=== PATIENT | male | born 2000 | race Caucasian/White ===

== ENCOUNTER 2019-04-05 21:37 | Emergency (ER) | payer MEDICAID ==
[2019-04-05] MEDS ORDERED: NS 0.9% 1000 ML** 1,000 ML IV.FLUID IV ONE (22:21)
[2019-04-05] MEDS ORDERED: Albuterol/Ipratropium NEB.SOL* Albuterol 2.5 MG/Ipratropium 0.5 MG 3 ML INH ONE (22:24)
[2019-04-05] MEDS ORDERED: NS 0.9% 1000 ML** 1,000 ML IV ONE (22:59)
[2019-04-05 23:02] LABS: Activated Partial Thrombo Time 38.2 seconds (26.0-38.0); INR 1.16 (0.82-1.09)
[2019-04-05 23:04] LABS: Albumin 4.6 g/dL (3.2-5.2); Calcium 10.2 mg/dL (8.6-10.3); Potassium 4.3 mmol/L (3.5-5.0); Total Bilirubin 0.5 mg/dL (0.2-1.0)
[2019-04-05 23:10] LABS: Albumin/Globulin Ratio 1.6 (1-3); BUN/Creatinine Ratio 12.7 (8-20); C Reactive Protein 3.94 mg/L (<8.01); EGFR African American 63.6 (>60); EGFR Non-African American 52.6 (>60); Globulin 2.8 g/dL (2-4); Total Protein 7.4 g/dL (6.4-8.9)
[2019-04-05 23:25] LABS: ABS Lymphocytes 0.8 10^3/ul (1.0-4.8); ABS Monocytes 0.6 10^3/ul (0-0.8); ABS Neutrophils 3.1 10^3/ul (1.5-7.7); Eosinophil % 0.6 %; Hematocrit 38 % (42-52); Hemoglobin 12.6 g/dL (14.0-18.0); Lymphocyte % 17.7 %; Mean Corpuscular HGB Conc 33 g/dL (31-36); Mean Corpuscular Hemoglobin 29 pg (27-31); Mean Corpuscular Volume 87 fL (80-94); Mean Platelet Volume 8.6 fL (7.4-10.4); Nucleated Red Blood Cells % 0.1; Platelet Count 230 10^3/uL (150-450); Red Blood Count 4.42 10^6 /uL (4.18-5.48); Red Cell Distribution Width 14 % (10-15); White Blood Count 4.5 10^3/uL (3.5-10.8)
--- NOTE | 2019-04-05 23:38 | ED ---
Respiratory - HPI Summary HPI Summary: 19 year old male presents with cough and shortness breath today. He has a history of renal transplant. States when he gets like this he is placed on 2 antibiotics. His symptoms started out of nowhere. no fevers. He admits to muscle aches. Has been wheezing. He denies any history asthma or COPD. Is not a smoker. No abdominal pain. No nausea vomiting. is nonsmoker. no chest pain. - History of Current Complaint Chief Complaint: EDUpperRespComplaint Stated Complaint: CONGESTED PER PT Time Seen by Provider: 04/05/19 22:10 Pain Intensity: 5 Sputum Amount: None - Allergy/Home Medications Allergies/Adverse Reactions: Allergies Allergy/AdvReac Type Severity Reaction Status Date / Time morphine Allergy Hallucinati Verified 04/05/19 21:41 ons vancomycin Allergy See Comment Verified 04/05/19 21:41 PMH/Surg Hx/FS Hx/Imm Hx Endocrine/Hematology History: Denies: Hx Anticoagulant Therapy Respiratory History: Denies: Hx Asthma Infectious Disease History: No Infectious Disease History: Denies: Traveled Outside the [place] in Last 30 Days - Family History Known Family History: Positive: Non-Contributory - Social History Substance Use Type: Reports: None Smoking Status (MU): Never Smoked Tobacco Review of Systems Negative: Fever Positive: Shortness Of Breath, Cough Negative: Abdominal Pain All Other Systems Reviewed And Are Negative: Yes Physical Exam Triage Information Reviewed: Yes Vital Signs On Initial Exam: Initial Vitals Temp Pulse Resp BP Pulse Ox 99.3 F 104 16 155/98 98 04/05/19 21:40 04/05/19 21:40 04/05/19 21:40 04/05/19 21:40 04/05/19 21:40 Vital Signs Reviewed: Yes Appearance: Positive: Well-Appearing Skin: Positive: Warm, Dry Head/Face: Positive: Normal Head/Face Inspection Eyes: Positive: Normal, EOMI, FRAN, Conjunctiva Clear ENT: Positive: Pharynx normal, TMs normal Respiratory/Lung Sounds: Positive: Breath Sounds Present, Wheezes Cardiovascular: Positive: Normal, RRR Abdomen Description: Positive: Nontender, Soft Bowel Sounds: Positive: Present Musculoskeletal: Positive: Normal Neurological: Positive: Normal Psychiatric: Positive: Normal Procedures - Sedation Patient Received Moderate/Deep Sedation with Procedure: No Diagnostics - Vital Signs Vital Signs Temp Pulse Resp BP Pulse Ox 04/05/19 23:31 95 16 100 04/05/19 21:40 99.3 F 104 16 155/98 98 - Laboratory Lab Results: Lab Results 04/05/19 04/05/19 04/05/19 Range/Units 22:41 22:41 22:41 WBC 4.5 (3.5-10.8) 10^3/uL RBC 4.42 (4.18-5.48) 10^6 /uL Hgb 12.6 L (14.0-18.0) g/dL Hct 38 L (42-52) % MCV 87 (80-94) fL MCH 29 (27-31) pg MCHC 33 (31-36) g/dL RDW 14 (10-15) % Plt Count 230 (150-450) 10^3/uL MPV 8.6 (7.4-10.4) fL Neut % (Auto) 67.9 % Lymph % (Auto) 17.7 % [place] % (Auto) 13.3 % Eos % (Auto) 0.6 % Baso % (Auto) 0.5 % Absolute Neuts (auto) 3.1 (1.5-7.7) 10^3/ul Absolute Lymphs (auto) 0.8 L (1.0-4.8) 10^3/ul Absolute Monos (auto) 0.6 (0-0.8) 10^3/ul Absolute Eos (auto) 0.0 (0-0.6) 10^3/ul Absolute Basos (auto) 0.0 (0-0.2) 10^3/ul Absolute Nucleated RBC 0.0 10^3/ul Nucleated RBC % 0.1 INR (Anticoag Therapy) 1.16 H (0.82-1.09) APTT 38.2 H (26.0-38.0) seconds Sodium 141 (135-145) mmol/L Potassium 4.3 (3.5-5.0) mmol/L Chloride 110 (101-111) mmol/L Carbon Dioxide 22 (22-32) mmol/L Anion Gap 9 (2-11) mmol/L BUN 21 (6-24) mg/dL Creatinine 1.66 H (0.67-1.17) mg/dL Est GFR ( Amer) 63.6 (>60) Est GFR (Non-Af Amer) 52.6 (>60) BUN/Creatinine Ratio 12.7 (8-20) Glucose 87 (70-100) mg/dL Lactic Acid (0.5-2.0) mmol/L Calcium 10.2 (8.6-10.3) mg/dL Total Bilirubin 0.50 (0.2-1.0) mg/dL AST 13 (13-39) U/L ALT 9 (7-52) U/L Alkaline Phosphatase 45 (34-104) U/L C-Reactive Protein 3.94 (<8.01) mg/L Total Protein 7.4 (6.4-8.9) g/dL Albumin 4.6 (3.2-5.2) g/dL Globulin 2.8 (2-4) g/dL Albumin/Globulin Ratio 1.6 (1-3) / Range/Units 22:41 WBC (3.5-10.8) 10^3/uL RBC (4.18-5.48) 10^6 /uL Hgb (14.0-18.0) g/dL Hct (42-52) % MCV (80-94) fL MCH (27-31) pg MCHC (31-36) g/dL RDW (10-15) % Plt Count (150-450) 10^3/uL MPV (7.4-10.4) fL Neut % (Auto) % Lymph % (Auto) % [place] % (Auto) % Eos % (Auto) % Baso % (Auto) % Absolute Neuts (auto) (1.5-7.7) 10^3/ul Absolute Lymphs (auto) (1.0-4.8) 10^3/ul Absolute Monos (auto) (0-0.8) 10^3/ul Absolute Eos (auto) (0-0.6) 10^3/ul Absolute Basos (auto) (0-0.2) 10^3/ul Absolute Nucleated RBC 10^3/ul Nucleated RBC % INR (Anticoag Therapy) (0.82-1.09) APTT (26.0-38.0) seconds Sodium (135-145) mmol/L Potassium (3.5-5.0) mmol/L Chloride (101-111) mmol/L Carbon Dioxide (22-32) mmol/L Anion Gap (2-11) mmol/L BUN (6-24) mg/dL Creatinine (0.67-1.17) mg/dL Est GFR ( Amer) (>60) Est GFR (Non-Af Amer) (>60) BUN/Creatinine Ratio (8-20) Glucose (70-100) mg/dL Lactic Acid 0.5 (0.5-2.0) mmol/L Calcium (8.6-10.3) mg/dL Total Bilirubin (0.2-1.0) mg/dL AST (13-39) U/L ALT (7-52) U/L Alkaline Phosphatase (34-104) U/L C-Reactive Protein (<8.01) mg/L Total Protein (6.4-8.9) g/dL Albumin (3.2-5.2) g/dL Globulin (2-4) g/dL Albumin/Globulin Ratio (1-3) Result Diagrams: 04/05/19 22:41 04/05/19 22:41 Lab Statement: Any lab studies that have been ordered have been reviewed, and results considered in the medical decision making process. - Radiology chest Radiology Interpretation Completed By: ED Physician Summary of Radiographic Findings: no pneumonia Re-Evaluation - Re-Evaluation First Eval Re-Evaluation Time: 00:39 Change: Improved Comment: no longer wheezing Disposition - Course Course Of Treatment: 19 year old male presents with cough and shortness breath today. He has a history of renal transplant. States when he gets like this he is placed on 2 antibiotics. His symptoms started out of nowhere. no fevers. He admits to muscle aches. Has been wheezing. He denies any history asthma or COPD. Is not a smoker. No abdominal pain. No nausea vomiting. is nonsmoker. On exam wheezes noted. wbc Normal. Chest x-ray normal. Give fluids. chest xray normal. flu b Positive. We will place on Tamiflu. Patient given breathing treatment with improvement. will give inhaler. told to contact transplant doctors if should be on antibiotic. Patient understands and agrees with the plan. - Differential Dx - Cardiopulmonary Differential Diagnoses - Cardiopulmonary: Bronchitis, Influenza, Lower Resp Infection - Diagnoses Provider Diagnoses: Influenza Discharge ED - Sign-Out/Discharge Documenting (check all that apply): Patient Departure - Discharge Plan Condition: Good Disposition: HOME Prescriptions: Oseltamivir CAP* [Tamiflu CAP*] 75 mg PO BID #9 cap Patient Education Materials: Influenza (ED) Forms: *School Release Referrals: No Primary Care Phys,NOPCP [Primary Care Provider] - Additional Instructions: Take Tamiflu twice for 5 days first dose given in ED Take Tylenol for muscle aches and fever every 6 hours Saline rinse can be used multiple times a day for nasal congestion Drink plenty of fluids Follow up with primary within 5 days Return to ED if develop any new or worsening symptoms - Billing Disposition and Condition Condition: GOOD Disposition: Home
[2019-04-06 00:15] LABS: Influenza B Molecular POSITIVE (Negative)
[2019-04-06] MEDS ORDERED: Oseltamivir CAP* 75 MG CAP PO ONE (00:27)
[2019-04-06 01:32] VITALS: BP 145/89
== END 2019-04-06 01:32 | disposition home or self-care (01) ==
LOC: ED 21:37
DX: J10.1 Influenza due to other identified influenza virus with other respiratory manifestations (principal); I51.7 Cardiomegaly; Z94.0 Kidney transplant status; Z88.1 Allergy status to other antibiotic agents; Z88.5 Allergy status to narcotic agent
CPT/HCPCS: 36415; 71046; 80053; 83605; 85025; 85610; 85730; 86140; 87040; 96360; 99284; A9270-GY